=== PATIENT | male | born 1985 | race Two or more races ===

== ENCOUNTER 2025-02-06 15:00 | Emergency (ER) | payer BC ==
[~2025-02-06] VITALS: Ht 167.6 cm; Wt 116.0 kg
--- NOTE | 2025-02-06 15:30 | ED.PDOC ---
HPI (NEURO) HPI Comments This is a 39 year old male presenting to the ED with chief complaint of facial numbness. Patient reports that he has been experiencing right sided facial numbness intermittently since Tuesday. Patient denies any weakness, tingling, chest pain, SOB, headache, dizziness, or N/V. Chief Complaint: Right Sided Weakness Time Seen by MD: 15:28 Reviewed Notes: Nurses Notes, Medications, Allergies Information Source: Patient Mode of Arrival: Ambulatory Severity: Moderate Timing: Days Duration: Intermittent Prehospital treatment: None Numbness Location: Facial Onset: At rest Circumstances: Spontaneous Symptoms: Numbness Associated Signs and Symptoms: Numbness Past Medical History PAST MEDICAL HISTORY: DM Surgical History: Denies all surgeries Family History Family History: Reviewed,noncontributory to illness Social History Smoker: Non-Smoker Alcohol: Denies ETOH Use Drugs: Denies Drug Use Lives In: Home Constitutional: denies: chills, diaphoresis, fatigue, fever, malaise, sweats, weakness, others EENTM: denies: blurred vision, double vision, ear bleeding, ear discharge, ear drainage, ear pain, ear ringing, eye pain, eye redness, hearing loss, mouth pain, mouth swelling, nasal discharge, nose bleeding, nose congestion, nose pain, photophobia, tearing, throat pain, throat swelling, voice changes, others Respiratory: denies: cough, hemoptysis, orthopnea, SOB at rest, shortness of breath, SOB with excertion, stridor, wheezing, others Cardiovascular: denies: chest pain, dizzy spells, diaphoresis, Dyspnea on exertion, edema, irregular heart beat, left arm pain, lightheadedness, palpitations, PND, syncope, others Gastrointestinal: denies: abdomen distended, abdominal pain, blood streaked bowels, constipated, diarrhea, dysphagia, difficulty swallowing, hematemesis, melena, nausea, poor appetite, poor fluid intake, rectal bleeding, rectal pain, vomiting, others Genitourinary: denies: burning, dysuria, flank pain, frequency, hematuria, incontinence, penile discharge, penile sore, pain, testicle pain, testicle swelling, urgency, others Neurological: reports: others (Facial numbness); denies: dizziness, fainting, headache, left sided numbness, left sided weakness, numbness, paresthesia, pre-existing deficit, right sided numbness, right sided weakness, seizure, speech problems, tingling, tremors, weakness Musculoskeletal: denies: back pain, gout, joint pain, joint swelling, muscle pain, muscle stiffness, neck pain, others Integumetry: denies: bruises, change in color, change in hair/nails, dryness, laceration, lesions, lumps, rash, wounds, others Allergic/Immunocompromised: denies: Difficulty Healing, Frequent Infections, Hives, Itching, others Hematologic/Lymphatic: denies: anemia, blood clots, easy bleeding, easy bruising, swollen glands, others Endocrine: denies: excessive hunger, excessive sweating, excessive thirst, excessive urination, flushing, intolerance to cold, intolerance to heat, unexplained weight gain, unexplained weight loss, others Psychiatric: denies: anxiety, bipolar disorder, depression, hopeless, panic disorder, schizophrenia, sleepless, suicidal, others All Other Systems: Reviewed and Negative Physical Exam General Appearance: Moderate Distress, Normal HEENT: Normal ENT Inspection, Pharynx Normal, TMs Normal Neck: Full Range of Motion, Non-Tender, Normal, Normal Inspection Respiratory: Chest Non-Tender, Lungs Clear, No Accessory Muscle Use, No Respiratory Distress, Normal Breath Sounds Cardiovascular: No Edema, No JVD, No Murmur, No Gallop, Normal Peripheral Pulses, Regular Rate/Rhythm Breast Exam: Deferred Gastrointestinal: No Organomegaly, Non Tender, No Pulsatile Mass, Normal Bowel Sounds, Soft Genitalia: Deferred Pelvic: Deferred Rectal: Deferred Extremities: No calf tenderness, Normal capillary refill, Normal inspection, Normal range of motion, Non-tender, No pedal edema Musculoskeletal : Apperance: Normal Neurologic: Alert, 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 Was a procedure done?: No Differential Diagnosis (SZ) Seizure: Psychogenic Seizure, Closed Head Injury, CVA/TIA X-Ray, Labs, Meds, VS Vital Signs Date Time Temp Pulse Resp B/P (MAP) Pulse Ox O2 Delivery O2 Flow Rate FiO2 02/06/25 15:15 71 02/06/25 15:06 97.6 77 18 176/90 96 97.6 Lab Test 02/06/25 16:35 Range/Units Troponin I High Sensitivity < 3 L </=54 ng/L Patient alert. Came in because of right-sided facial numbness. Vitals stable. Answering questions. Blood pressure slightly elevated. Ambulating without difficulty. Good muscle strength. Pristine neurological examination. No drift. CT of the head reviewed does not show any acute changes. He is anxious. Possible anxiety. EKG reviewed does not show any acute process. Denies chest pain. Cardiac marker within normal limits. Denies shortness a breath. No leg swelling. Possible stress-induced. Explained to the patient. Was told to follow up with his primary care physician. Was told to come back if there is any problem. Time of 1ST Reevaluation: 16:27 Reevaluation 1ST: Unchanged Time of 2ND Reevaluation: 17:26 Reevaluation 2ND: Improved Patient Education/Counseling: Diagnosis, Treatment Family Education/Counseling: No Family Present Departure 1 Departure Time of Disposition: 16:13 Impression: Primary Impression: Hypertensive urgency Additional Impression: Stress reaction Disposition: 01 HOME / SELF CARE / HOMELESS Condition: Good Discharged With: Self Critical Care Note Critical Care Time?: No Stability Stability form required: No Heart Score Heart Score: Heart Score Response (Comments) Value History Slightly Suspicious 0 EKG Normal 0 Age <45 0 Risk Factors No known risk factors 0 Troponin N/A 0 Total 0 I personally scribed for JACOB LOMBARDI MD ([email or web address]) on 02/06/25 at 15:30. Electronically submitted by Saturnino Florez ([email or web address]). JACOB LOMBARDI MD Feb 06, 2025 15:30
--- NOTE | 2025-02-06 16:19 | DVH ---
CLINICAL HISTORY: tia TECHNIQUE: Helical scanning was performed of the head from the skull base to the vertex. Multiplanar reconstructions were performed. This exam was performed according to our departmental dose optimization program. Up-to-date CT equipment and radiation dose reduction techniques are utilized as appropriate. CTDI 59 DLP 1171 COMPARISON: None FINDINGS: There is no evidence for acute intracranial hemorrhage, acute ischemic changes, mass, mass effect, or extra-axial fluid collection. There is no hydrocephalus or midline shift. There is no effacement of the cerebral sulci and basal subarachnoid cisterns. The lorenzana-white matter differentiation is well maintained. The imaged paranasal sinuses are clear. IMPRESSION: NO ACUTE INTRACRANIAL ABNORMALITY SEEN.
--- NOTE | 2025-02-06 17:55 | ECG ---
[facility] Test Date: 2025-02-06 Test Time: 15:15:51 Pat Name: DEEPALI GRAHAM Department: Room: Gender: M Cbx Operator: DR GUEVARA: 1985 Requested By: JACOB LOMBARDI Order Number: [id number] Reading MD: Jared Damon Measurements Intervals [place] Rate: 71 P: 32 PA: 184 QRS: 52 QRSD: 107 T: 64 QT: 380 QTc: 413 Interpretive Statements Sinus rhythm ST elev, probable normal early repol pattern Electronically Signed On 02-07-2025 17:04:59 PST by Jared Damon Please click the below link to view image of tracing.
[2025-02-06 18:57] VITALS: BP 145/80; TEMP 97.7
[2025-02-06] MEDS: LORazepam 0.5 MG TAB PO ONE (19:06)
[2025-02-06 19:13] VITALS: PULSE 63; RESP 16; O2SAT 97
== END 2025-02-06 19:17 | disposition home or self-care (01) ==
LOC: ER 15:00
DX: I16.0 Hypertensive urgency (principal); F43.9 Reaction to severe stress, unspecified; E11.9 Type 2 diabetes mellitus without complications
CPT/HCPCS: 36415; 70450; 82947; 84484; 93005